=== PATIENT | female | born 1975 | race Asian ===

== ENCOUNTER → 2017-02-20 | Outpatient (CLI) | payer OTHER | LOC: CIMAGING 09:41 | PROVIDERS: ATTEND Internal Medicine | DX: Z12.31 Encounter for screening mammogram for malignant neoplasm of breast (principal) | CPT/HCPCS: G0202 ==

== ENCOUNTER → 2018-09-14 | Outpatient (CLI) | payer OTHER | LOC: CIMAGING 12:05 | PROVIDERS: ATTEND Internal Medicine | DX: Z12.31 Encounter for screening mammogram for malignant neoplasm of breast (principal) ==